=== PATIENT | male | born 1960 ===

== ENCOUNTER 2018-05-24 08:14 | Day surgery (SDC) | payer OTHER ==
[2018-05-24] MEDS ORDERED: ceFAZolin 2 GM/DEXTROSE 100 ML IV ONE (08:43)
[2018-05-24] MEDS ORDERED: LIDOCAINE 1% 2 ML INJ ID PRN (08:47)
[2018-05-24] MEDS ORDERED: LR 1,000 ML IV ONE (08:47)
--- NOTE | 2018-05-24 08:57 | PDHPUP ---
History & Physical Update H&P update statement: This history and physical update is based on an assessment of the patient which was completed after admission or registration (within 24 hours), but prior to the surgery/procedure. H&P update: H&P reviewed & patient examined, no change in patient's condition since H&P completed
[2018-05-24] MEDS ORDERED: MIDAZOLAM 2 MG/2 ML VIAL IVP ONE (09:05)
--- NOTE | 2018-05-24 09:05 | PDANEPAE ---
ANE History of Present Illness open umbilical hernia repair ANE Past Medical History - Cardiovascular History Hx Hypertension: No Hx Arrhythmias: Yes Hx Chest Pain: No Hx Coronary Artery / Peripheral Vascular Disease: No Hx CHF / Valvular Disease: No Hx Palpitations: No Cardiovascular History Comment: afib -diagnosed 5-6 yrs ago - Pulmonary History Hx COPD: No Hx Asthma/Reactive Airway Disease: No Hx Recent Upper Respiratory Infection: No Hx Oxygen in Use at Home: No Hx Sleep Apnea: No Sleep Apnea Screening Result - Last Documented: Negative - Neurologic History Hx Cerebrovascular Accident: No Hx Seizures: No Hx Dementia: No - Endocrine History Hx Diabetes: No - Renal History Hx Renal Disorders: No - Liver History Hx Hepatic Disorders: No - Neurological & Psychiatric Hx Hx Neurological and Psychiatric Disorders: No - Cancer History Hx Cancer: No - Congenital Disorder History Hx Congenital Disorders: No - GI History Hx Gastrointestinal Disorders: No Gastrointestinal History Comment: increasing umbilical/ abd pressure - Other Health History Other Health History: none - Chronic Pain History Chronic Pain: No - Surgical History Prior Surgeries: oral surgery- wisdom teeth removed 30 yrs ago ANE Review of Systems Review of systems is: negative Review of Systems: - Exercise capacity METS (RN): 4 METS ANE Patient History - Allergies Allergies/Adverse Reactions: No Known Allergies Allergy (Verified 05/24/18 08:51) - Home Medications Home medications: home medication list seen and reviewed Home Medications: Herbals/Supplements -Info Only 05/09/18 [Last Taken 05/17/18] - Anes Hx Anes Hx: no prior problems - Smoking Hx Smoking Status: Never smoked - Family Anes Hx Family Anes Hx: none Family Hx Anesthesia Complications: none ANE Labs/Vital Signs - Vital Signs Vital Signs: reviewed preoperatively; see RN documention for details Height: 180.34 cm Weight: 81.647 kg ANE Physical Exam - Airway Neck exam: FROM Mallampati Score: Class 2 Mouth exam: normal dental/mouth exam - Pulmonary Pulmonary: no respiratory distress - Cardiovascular Cardiovascular: regular rate and rhythym - ASA Status ASA Status: II ANE Anesthesia Plan Total IV Anesthesia: Yes
[2018-05-24] MEDS ORDERED: LIDOCAINE 1% 300 MG/30 ML SDV ONE (09:13)
[2018-05-24] MEDS ORDERED: BUPIVACAINE 0.5% 30 ML SDV ONE (09:13)
[2018-05-24] MEDS ORDERED: PROPOFOL/EMULSION 500 MG/50 ML BOTTLE IV ONE ×2 (09:43→10:13)
[2018-05-24] MEDS ORDERED: LIDOCAINE 2% 100 MG/5 ML SYR ONE (09:43)
[2018-05-24] MEDS ORDERED: ACETAMINOPHEN 500 MG TAB PO PRN (10:18)
[2018-05-24] MEDS ORDERED: DEXAMETHASONE 4 MG/ML VIAL IVP PRN (10:18)
[2018-05-24] MEDS ORDERED: MEPERIDINE 25 MG/0.5 ML AMP IVP PRN (10:18)
[2018-05-24] MEDS ORDERED: fentaNYL 100 MCG/2 ML INJ IVP PRN (10:18)
[2018-05-24] MEDS ORDERED: ALBUTEROL 3 ML DEYVIAL IH PRN (10:18)
[2018-05-24] MEDS ORDERED: PROMETHAZINE HCL 25 MG/ML INJ IVP PRN (10:18)
[2018-05-24] MEDS ORDERED: oxyCODONE IR 5 MG TAB PO PRN (10:18)
[2018-05-24] MEDS ORDERED: NALOXONE HCL 0.4 MG/ML INJ IVP PRN (10:18)
[2018-05-24] MEDS ORDERED: HYDROCODONE/APAP 5/325 TAB PO PRN (10:18)
[2018-05-24] MEDS ORDERED: ONDANSETRON 4 MG/2 ML VIAL IVP PRN (10:18)
[2018-05-24] MEDS ORDERED: HYDROmorphONE/DILAUDID 2 MG/ML INJ IVP PRN (10:18)
--- NOTE | 2018-05-24 10:18 | POSTANESTH ---
Post Anesthetic Evaluation Cardiovascular Status: Normal, Stable, Similar to Pre-Op Cond Respiratory Status: Normal, Stable, Similar to Pre-op Cond. Level of Consciousness/Mental Status: Can Participate in Eval, Mildly Sleepy, Arousable Pain Control: Adequate, Prn Tx Ordered Nausea/Vomiting Control: Adequate, Prn Tx Ordered Complications Possibly Related to Anesthesia: None Noted
--- NOTE | 2018-05-24 10:28 | POSTOPPROG ---
Post Op Note Date of Operation: 05/24/18 Surgeon: Lavell Herrera Anesthesiologist: Dr. Herron Anesthesia: IV Sedation Pre-op Diagnosis: [facility] Post-op Diagnosis: [facility] Procedure: U[facility] Inf/Abcess present in the surg proc area at time of surgery?: No EBL: Minimal
--- NOTE | 2018-05-24 11:27 | GOP ---
DATE OF OPERATION: 05/24/2018 SURGEON: Bry Herrera MD ANESTHESIA: Monitored anesthetic care. ANESTHESIOLOGIST: Dr. Herron PREOPERATIVE DIAGNOSIS: Umbilical hernia. POSTOPERATIVE DIAGNOSIS: Umbilical hernia. PROCEDURE PERFORMED: Umbilical hernia repair. FINDINGS: Patient had preperitoneal fat with no evidence of abdominal contents. ESTIMATED BLOOD LOSS: 20 cc. INDICATIONS: 57-year-old male with a history of umbilical bulge. Risks and benefits of the procedur e were discussed the patient, questions were answered, and he wished to proceed. DESCRIPTION OF PROCEDURE: The patient was placed in the supine position. After the induction of bruce quate IV sedation, the patient was prepped and draped in the standard sterile fashion. Marcaine 0.5% was injected throughout the periumbilical area for local anesthesia. An infraumbilical incision was made with a #15 blade and carried down to the subcutaneous tissue with cautery and sharp dissection. The sac was carefully dissected and reduced. No other defects were identified. A Marlex mesh was trimmed to fit and secured using 0 Ethibond in a mattress fashion. Prior to tying these down, the de fect was loosely closed in a similar manner. The area was irrigated and hemostasis achieved with cau neel. The umbilicus was then tacked down using 3-0 Vicryl interrupted. The subcutaneous tissue was approximated using 3-0 Vicryl in a running fashion. Skin was closed with 5-0 Biosyn subcuticular. T he wound was sterilely dressed. The patient was taken to the post-anesthesia care unit in stable con dition. COMPLICATIONS: None. DRAINS: None. /[id number]/MODL
[2018-05-24 11:43] VITALS: BP 112/79
--- NOTE | 2018-05-24 16:06 | CPEKG ---
Test Reason : OPEN Blood Pressure : / mmHG Vent. Rate : 050 BPM Atrial Rate : 051 BPM P-R Int : 142 ms QRS Dur : 091 ms QT Int : 465 ms P-R-T Axes : 076 088 060 degrees QTc Int : 424 ms Sinus rhythm Confirmed by Ciera Masters ([id number]) on 05/24/2018 4:06:25 PM Referred By: Confirmed By:Ciera Masters
== END 2018-05-24 12:15 | disposition home or self-care (01) ==
LOC: FSGY 08:14
PROVIDERS: ATTEND Surgery
PROC: 0WQF0ZZ Repair Abdominal Wall, Open Approach (ICD-10-PCS; principal; 2018-05-24 09:45)
DX: K42.9 Umbilical hernia without obstruction or gangrene (principal); I48.91 Unspecified atrial fibrillation
CPT/HCPCS: C1781; J0690; J2001; J2250; J2704